=== PATIENT | female | born 1950 | race Caucasian/White ===

== ENCOUNTER 2025-02-19 11:17 | Emergency (ER) | payer MEDICARE ==
[~2025-02-19] VITALS: Ht 157.5 cm; Wt 60.6 kg
[2025-02-19 11:24] VITALS: TEMP 98.6
[2025-02-19] MEDS ORDERED: LOSA50TA28 PO (11:52)
[2025-02-19] MEDS ORDERED: METO1TAB7 PO (11:52)
[2025-02-19] MEDS: ACETAMINOPHEN 325 MG TAB PO ONE (14:56)
[2025-02-19 14:58] VITALS: BP 182/73; O2SAT 100
== END 2025-02-19 15:19 | disposition home or self-care (01) ==
LOC: M ED 11:17
DX: S00.83XA Contusion of other part of head, initial encounter (principal); S80.02XA Contusion of left knee, initial encounter; W01.0XXA Fall on same level from slipping, tripping and stumbling without subsequent striking against object, initial encounter; Y92.481 Parking lot as the place of occurrence of the external cause; Y93.9 Activity, unspecified; Y99.9 Unspecified external cause status; M47.812 Spondylosis without myelopathy or radiculopathy, cervical region; J01.00 Acute maxillary sinusitis, unspecified; I25.10 Atherosclerotic heart disease of native coronary artery without angina pectoris; I10 Essential (primary) hypertension; M06.9 Rheumatoid arthritis, unspecified; Z95.5 Presence of coronary angioplasty implant and graft; Z87.442 Personal history of urinary calculi